=== PATIENT | female | born 1935 | race Caucasian/White ===

== ENCOUNTER 2017-03-07 05:27 | Inpatient (IN) | payer OTHER ==
[2017-02-27 13:23] LABS: HEMATOCRIT 35.6 % (37.0-47.0); HEMOGLOBIN 11.3 gm/dL (12.0-15.0); MCH 26.5 pg (26.0-34.0); MCHC 31.8 g/dL (28.0-37.0); MCV 83.2 fL (80.0-100.0); RBC 4.28 mil/uL (4.20-5.00); RDW 17.5 % (10.5-14.5); URINE BILIRUBIN NEGATIVE (Negative); URINE BLOOD TRACE (Negative); URINE COLOR YELLOW; URINE GLUCOSE-RANDOM* NEGATIVE (Negative); URINE KETONES NEGATIVE (Negative); URINE LEUKOCYTES-REFLEX 1+ (Negative); URINE PROTEIN (DIPSTICK) NEGATIVE (Negative); WBC 7.4 thou/uL (4.0-11.0)
[2017-02-27 13:32] LABS: CALCIUM 8.3 mg/dL (8.5-10.1); CREATININE 0.7 mg/dL (0.6-1.0); POTASSIUM 4.2 mmol/L (3.5-5.1)
[2017-02-27 13:33] LABS: CASTS None Seen /LPF (None Seen); SQUAMOUS 0-3 Few /LPF (0-3); URINE RBC 0-2 Rare /HPF (0-2); URINE WBC-REFLEX 0-5 Rare /HPF (0-5)
[2017-02-27 13:34] LABS: CRYSTALS None Seen /LPF (None Seen)
[2017-02-27 13:42] LABS: PROTIME 10.1 Seconds (9.3-11.4)
[~2017-03-07] VITALS: Ht 152.4 cm; Wt 68.9 kg
[2017-03-07] VITALS (12 sets, daily range): BP systolic 100–147; BP diastolic 60–91
--- NOTE | ~2017-03-07 | HC ---
[facility] [place] [address] CONSULTATION Name: TREVOR SHEN Room #: 406-P ADM IN M.R.#: [id number] Admission: 03/07/17 Attend Phys: Ernst Conn MD Discharge: Date of : 39 Report #: [id number] THIS REPORT FOR: //name// CC: Nicole Conn REASON FOR CONSULTATION: Postop management left knee arthroplasty. HISTORY OF PRESENT ILLNESS: The patient is seen postoperatively. The patient's pain is fairly well controlled. Denies any nausea, vomiting. No chest pain. PAST MEDICAL HISTORY: No hypertension, no diabetes, no coronary artery disease. PAST SURGICAL HISTORY: Significant for bilateral hip replacement, right knee replacement. SOCIAL HISTORY: No smoking, alcohol abuse, or illicit drug abuse. FAMILY HISTORY: Significant for hypertension. ALLERGIES: THE PATIENT IS ALLERGIC TO PENICILLIN. Please look at the nursing documentation for the type of reaction. HOME MEDICATIONS: Reviewed, please look at the nursing documentation. REVIEW OF SYSTEMS: CONSTITUTIONAL: No fever, chills, no weight loss, weight gain. EYES: No change in vision. CARDIOVASCULAR: No chest pain, dizziness, palpitations. RESPIRATORY: No cough or expectoration. GASTROINTESTINAL: No nausea or vomiting. GENITOURINARY: No dysuria, hematuria. NEUROLOGIC: No focal numbness or weakness of the extremity. PSYCHIATRIC: No anxiety or depression. A 12-point review of system is negative other than the positive and negative dictated in the history of present illness and the review of system. PHYSICAL EXAMINATION: VITAL SIGNS: Blood pressure 134/78, heart rate of 78 per minute, afebrile. GENERAL: The patient is awake and alert, not in acute respiratory distress. EYES: Pupils equal, reactive to light, nonicteric conjunctivae. THROAT: Appears normal. NECK: Supple, no JVD, no bruit, no lymphadenopathy. CARDIOVASCULAR SYSTEM: S1, S2, negative S3, no murmur. CHEST: Bilateral air entry present. Clear on auscultation. ABDOMEN: Soft, bowel sounds present, no mass, no organomegaly, no tenderness. EXTREMITIES: No pedal edema. [facility] [address] [place] [address] CONSULTATION Name: SHENTREVORRAMSES YUSUF Room #: 406-P [facility] IN M.R.#: [id number] Admission: 03/07/17 Attend Phys: Ernst Conn MD Discharge: Date of : 39 Report #: [id number] LABORATORY DATA: Reviewed. These labs were done on 02/27/2017. White count is 7.3, hemoglobin 11.3, platelets 433. PT/INR within normal limit. Chemistry revealed a BUN of 18, creatinine of 0.7. Urine was essentially negative on 02/27/2017. ASSESSMENT AND PLAN: 1. Status post left knee arthroplasty. 2. Postoperative course as per orthopedic surgery. The patient will be on Xarelto as per Orthopedic Surgery for deep venous thrombosis prophylaxis. We will check a basic metabolic panel and CBC in the morning. We will follow up with Orthopedic Surgery. Treatment plan has been explained to the patient in detail. <ELECTRONICALLY SIGNED> By: Sohail Horta MD 03/08/17 1335 [id number] [id number] Sohail Horta MD /nt
--- NOTE | ~2017-03-07 | O ---
[facility] [place] [address] OPERATIVE REPORT Name: TREVOR SHEN Room #: 406-P [facility] IN M.R.#: [id number] Admission: 03/07/17 Attend Phys: Ernst Conn MD Discharge: 03/10/17 Date of : 39 Report #: [id number] THIS REPORT FOR: //name// CC: Nicole Conn DATE OF SERVICE: 03/07/2017 DATE OF SERVICE: 03/07/2017 PREOPERATIVE DIAGNOSIS: Left knee degenerative joint disease, severe. POSTOPERATIVE DIAGNOSIS: Left knee degenerative joint disease, severe. PROCEDURE: Left knee total knee arthroplasty. SURGEON: Ernst Conn MD CLASSROOM TEACHER: ANDREA Yoo ANESTHETIC: General. INDICATIONS: See hospital H and P. IMPLANTS UTILIZED: We used a DePuy PFC knee system. We used a cruciate retaining femoral component size 3 left, we used a size 3 tibial tray with a 10-mm insert and a 38-mm oval dome patella. DESCRIPTION OF PROCEDURE: After adequate general anesthesia had been obtained, the patient's left lower extremity was prepped and draped in the usual meticulous sterile fashion. Limb was exsanguinated with gravity and tourniquet inflated to 350 torr. An anterior midline incision was made, subQ divided sharply. Hemostasis obtained with electrocautery. Medial parapatellar incision was made. When we made the incision, she had inflammatory appearing joint fluid and so for that reason we sent a stat Gram stain prior to proceeding with the procedure. 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 It did not appear to be a purulent situation and she had no constitutional symptoms and so did not appear to be sepsis. I felt going ahead and proceeding with surgery was the direction we should ago. We then did a medial release, flexed the knee, drilled the distal femur, put the intramedullary guide into position. The distal femoral cutting guide was pinned at the appropriate height, distal femoral cut was made. The measuring device determined that size 3 was appropriate size for this patient. We impacted the cutting guide into position and the anterior, posterior and chamfer cuts were made. Rongeur was used to remove additional [facility] [address] [place] [address] OPERATIVE REPORT Name: PAL SHENMoisés KENDRICKAN Room #: 406-P DIS IN M.R.#: [id number] Admission: 03/07/17 Attend Phys: Ernst Conn MD Discharge: 03/10/17 Date of : 39 Report #: [id number] osteophytes. At this time, the ACL was transected, tibia translated anteriorly, menisci were excised. Drill was used to drill central portion of the tibia. This hole was enlarged, irrigated, suctioned, and the intramedullary guide placed the full length of tibia. Proximal tibial cutting guide placed at appropriate height and proximal tibia cut was made, 3 tray gave us the best coverage on the tibia. We then put the trial components in position with a 10 spacer. She had the best flexion and extension gap. She could only flex to approximately 90 degrees preoperatively, which she had had a little bit of roll back with her when we tried to attempt further flexion, so I did recess the PCL by releasing the femoral origin. This was also an improvement with the roll back, but she had some roll back due to the fact that her calf and her thigh were hitting one another with flexion. We then addressed the patella. It was measured, cutting guide clamped into position. Patellar cut was made and a size 35 template gave us the best coverage. Pedicles were drilled, trial component put in position. It tracked well. At this time, the tibial tray rotation was marked, distal femur drilled. Trial components were removed. The ____ were placed on to the field. The knee was irrigated with both pulse lavage and antibiotic irrigation. We placed bone plugs in the proximal tibia and distal femur. The cement was vacuum mixed and when it reached the appropriate consistency, the knee was thoroughly dried, the tibial tray was cemented into place. Excess cement was removed. The liner was impacted into place and the femur was impacted in place and, because of the patient's very soft poor quality bone, we did place cement in to the pegs along the chamfer cut. The knee was then taken out to 30 degrees of flexion with uniform compression placed across components. Patellar button was then cemented into place and again excess cement was removed. The irrigation was placed in the wound and allowed to rest in the wound until the cement fully cured. When it had done so, the knee was irrigated, dried thoroughly, and inspected. Drains were placed superolaterally both deep and superficial. The retinacular layer closed with combination of interrupted [id number] #1 Vicryl, as well as running #1 Tevdek. SubQ was closed with 2-0 Monocryl, skin closed with ricardo. Sterile compressive dressing applied. Tourniquet was then deflated. We did use a Prevena dressing for her. <ELECTRONICALLY SIGNED> By: Ernst Conn MD 03/14/17 1411 [id number] [id number] Ernst Conn MD /nt
[~2017-03-07 05:27] MED LIST: ALEVE220 MG PO; CO Q-10100 MG PO; COLACE100 MG PO; GLUCOSAMINE-CH1 EA13 PO; HYDROCODONE-APA1 TA1 PO; IBUPROFEN 600600 M1 PO; MELATONIN1 MG PO; NORCO 5-325 TA1 EACH PO; POTASSIUM99 M1 PO; TRAMADOL 50 MG50 MG PO; TUMERIC PO; TURMERIC500 MG PO; TYLENOL325 MG PO; VITAMIN D400 UNIT PO; VITAMINC500 PO; XARELTO10 MG PO
[2017-03-08 04:06] VITALS: BP 101/53
[2017-03-08 06:22] LABS: HEMATOCRIT 28.1 % (37.0-47.0); HEMOGLOBIN 9.5 gm/dL (12.0-15.0); MCH 27.1 pg (26.0-34.0); MCHC 33.7 g/dL (28.0-37.0); MCV 80.6 fL (80.0-100.0); PLATELET COUNT 361 thou/uL (150-400); RBC 3.49 mil/uL (4.20-5.00)
[2017-03-08 06:26] LABS: MANUAL DIFF YES
[2017-03-08 06:46] LABS: CALCIUM 8.2 mg/dL (8.5-10.1); CREATININE 0.7 mg/dL (0.6-1.0)
[2017-03-08 07:30] VITALS: BP 105/58
[2017-03-08 08:04] LABS: ABSOLUTE NEUTROPHILS 5.8 thou/uL (1.4-8.2); ANISOCYTOSIS 1+; OVALOCYTES FEW; TOTAL CELL COUNT 100
[2017-03-08 21:05] VITALS: BP 112/56
[2017-03-09 03:50] VITALS: BP 123/74
[2017-03-09 06:27] LABS: HEMATOCRIT 26.8 % (37.0-47.0); HEMOGLOBIN 9.1 gm/dL (12.0-15.0); MCH 27.2 pg (26.0-34.0); MCV 79.8 fL (80.0-100.0); PLATELET COUNT 363 thou/uL (150-400); RBC 3.35 mil/uL (4.20-5.00); RDW 16.8 % (10.5-14.5); WBC 10.8 thou/uL (4.0-11.0)
[2017-03-09 06:31] LABS: MANUAL DIFF YES
[2017-03-09 06:40] LABS: ALBUMIN 2.1 g/dL (3.4-5.0); CALCIUM 8.2 mg/dL (8.5-10.1); CREATININE 0.4 mg/dL (0.6-1.0); POTASSIUM 3.9 mmol/L (3.5-5.1); TOTAL BILIRUBIN 0.4 mg/dL (<0.1-1.0); TOTAL PROTEIN 6.3 g/dL (6.4-8.2)
[2017-03-09 07:39] VITALS: BP 108/63
[2017-03-09 07:48] LABS: ABSOLUTE NEUTROPHILS 9.6 thou/uL (1.4-8.2); ANISOCYTOSIS 1+; TOTAL CELL COUNT 100
[2017-03-09 16:00] VITALS: BP 112/54
[2017-03-09 19:37] VITALS: BP 92/56
[2017-03-10 04:54] LABS: HEMATOCRIT 26.1 % (37.0-47.0); HEMOGLOBIN 8.6 gm/dL (12.0-15.0); MCH 26.6 pg (26.0-34.0); MCHC 32.9 g/dL (28.0-37.0); MCV 81.1 fL (80.0-100.0); RBC 3.22 mil/uL (4.20-5.00); WBC 9.7 thou/uL (4.0-11.0)
[2017-03-10 05:16] LABS: CREATININE 0.6 mg/dL (0.6-1.0); MAGNESIUM 1.7 mg/dL (1.8-2.4)
[2017-03-10 06:06] VITALS: BP 114/64
[2017-03-10 08:00] VITALS: BP 115/51
[2017-03-10] MEDS ORDERED: XARELTO10 MG PO (10:54)
[2017-03-10] MEDS ORDERED: ACETAMINOPHEN325 M1 PO (10:54)
[2017-03-10] MEDS ORDERED: MELATONIN5 M1 PO (10:55)
[2017-03-10] MEDS ORDERED: COLACE 100 MG100 MG PO (10:55)
[2017-03-10] MEDS ORDERED: SENNA PO (10:55)
[2017-03-10 16:15] VITALS: BP 97/60
== END 2017-03-10 17:15 | DRG 469 ==
LOC: TBA 05:27 → 4N 05:27 → PRE 07:29 → 4N 11:57 → PRE 13:16 → 4N 03-10 17:15
PROVIDERS: Internal Medicine; Nurse Practitioner Family; Orthopaedic Surgery
PROC: 0SRD0J9 Replacement of Left Knee Joint with Synthetic Substitute, Cemented, Open Approach (ICD-10-PCS; principal; 2017-03-07)
DX: M17.12 Unilateral primary osteoarthritis, left knee (principal); E43 Unspecified severe protein-calorie malnutrition; Z96.643 Presence of artificial hip joint, bilateral; Z96.651 Presence of right artificial knee joint; K59.00 Constipation, unspecified; D64.9 Anemia, unspecified; G47.00 Insomnia, unspecified; E83.42 Hypomagnesemia; Z68.29 Body mass index [BMI] 29.0-29.9, adult; Z82.49 Family history of ischemic heart disease and other diseases of the circulatory system; Z88.0 Allergy status to penicillin
CPT/HCPCS: 10790; 50010; 50101; 50415; 50612; 50953; 50954; 51130; 51225; 51320; 51412; 51771; 52001; 53000; 53078; 53364; 56525; 56527; 62110; 62900; 64042; 65085; 70005

== ENCOUNTER 2018-02-17 05:40 | Emergency (ER) | payer OTHER ==
[~2018-02-17] VITALS: Ht 152.4 cm; Wt 71.7 kg
[~2018-02-17 05:40] MED LIST changes: +ACETAMINOPHEN325 M1 PO; +COLACE 100 MG100 MG PO; +MELATONIN5 M1 PO; +SENNA PO
[2018-02-17 07:36] LABS: ABSOLUTE NEUTROPHILS 12.2 thou/uL (1.4-8.2); BASOPHILS 0.2 % (0.0-2.0); HEMATOCRIT 34.3 % (37.0-47.0); HEMOGLOBIN 11.2 gm/dL (12.0-15.0); LYMPHOCYTES 3.6 % (24.0-44.0); MCH 26.6 pg (26.0-34.0); MCHC 32.8 g/dL (28.0-37.0); MCV 81.2 fL (80.0-100.0); MONOCYTES 5.8 % (1.0-8.0); PLATELET COUNT 376 thou/uL (150-400); POLYS 90.4 % (36.0-66.0); RBC 4.22 mil/uL (4.20-5.00); RDW 16.4 % (10.5-14.5); WBC 13.5 thou/uL (4.0-11.0)
[2018-02-17 07:47] LABS: CALCIUM 8.3 mg/dL (8.5-10.1); CREATININE 0.7 mg/dL (0.6-1.0); POTASSIUM 3.8 mmol/L (3.5-5.1)
[2018-02-17 07:50] LABS: APTT 27.6 Seconds (24.5-32.8); PROTIME 10.7 Seconds (9.3-11.4)
[2018-02-17 07:53] LABS: ALBUMIN 2.7 g/dL (3.4-5.0); TOTAL BILIRUBIN 0.4 mg/dL (<0.1-1.0); TOTAL PROTEIN 7.8 g/dL (6.4-8.2)
[2018-02-17 07:53] LABS: URINE BILIRUBIN NEGATIVE (Negative); URINE BLOOD NEGATIVE (Negative); URINE CLARITY CLEAR; URINE COLOR YELLOW; URINE GLUCOSE-RANDOM* NEGATIVE (Negative); URINE KETONES NEGATIVE (Negative); URINE LEUKOCYTES NEGATIVE (Negative); URINE NITRITE NEGATIVE (Negative); URINE PROTEIN (DIPSTICK) NEGATIVE (Negative); URINE UROBILINOGEN 0.2 E.U./dl (0.2-1.0)
[2018-02-17 08:00] LABS: AMP/METHAMP Negative (Negative); BARBITURATES Negative (Negative); BENZODIAZEPINES Negative (Negative); COCAINE Negative (Negative); METHADONE Negative (Negative); OPIATES Negative (Negative); PCP Negative (Negative)
== END 2018-02-17 08:03 ==
LOC: ER 05:40
PROVIDERS: Emergency Medicine
DX: S12.101A Unspecified nondisplaced fracture of second cervical vertebra, initial encounter for closed fracture (principal); S22.011A Stable burst fracture of first thoracic vertebra, initial encounter for closed fracture; S22.021A Stable burst fracture of second thoracic vertebra, initial encounter for closed fracture; S22.031A Stable burst fracture of third thoracic vertebra, initial encounter for closed fracture; S22.041A Stable burst fracture of fourth thoracic vertebra, initial encounter for closed fracture; S22.42XA Multiple fractures of ribs, left side, initial encounter for closed fracture; S00.01XA Abrasion of scalp, initial encounter; M19.011 Primary osteoarthritis, right shoulder; M16.0 Bilateral primary osteoarthritis of hip; Z96.653 Presence of artificial knee joint, bilateral; Z96.643 Presence of artificial hip joint, bilateral; Z98.890 Other specified postprocedural states; Z90.89 Acquired absence of other organs; Z86.2 Personal history of diseases of the blood and blood-forming organs and certain disorders involving the immune mechanism; Z90.49 Acquired absence of other specified parts of digestive tract; Z88.0 Allergy status to penicillin; W10.9XXA Fall (on) (from) unspecified stairs and steps, initial encounter; Y92.89 Other specified places as the place of occurrence of the external cause; Y93.89 Activity, other specified; Y99.8 Other external cause status